=== PATIENT | female | born 1955 | race Caucasian/White ===

== ENCOUNTER → 2021-08-30 | Outpatient (CLI) | payer MEDICARE | LOC: HEART 5 07:19 → NM 09-01 09:00 | DX: I25.10 Atherosclerotic heart disease of native coronary artery without angina pectoris (principal); I07.1 Rheumatic tricuspid insufficiency; I37.1 Nonrheumatic pulmonary valve insufficiency; I51.7 Cardiomegaly; R94.39 Abnormal result of other cardiovascular function study | CPT/HCPCS: 78452; 93306; A9502; J2785 ==

== ENCOUNTER → 2021-09-21 | Outpatient (CLI) | payer MEDICARE | LOC: HEART 5 14:11 | DX: I49.9 Cardiac arrhythmia, unspecified (principal) ==